=== PATIENT | male | born 1985 | race African-American/Black ===

== ENCOUNTER 2017-06-09 23:30 | Emergency (ER) | payer OTHER ==
[2017-06-09 23:40] VITALS: BP 134/94; PULSE 74; TEMP 98.9; BMI 22.3
--- NOTE | 2017-06-09 23:58 | PDOC ---
History of Present Illness - General Chief Complaint: Rectal Bleed Stated Complaint: BRIGHT RED BLOOD WITH BM Time Seen by Provider: 06/09/17 23:32 History Source: Patient Exam Limitations: No Limitations - History of Present Illness Initial Comments: 06/10/17 00:00 06/09/17 23:54 This is a 32 year old male who comes in complaining of intermittent episodes of bright red blood per rectum 2 weeks. Patient has not seen anybody for her symptoms were taken any medication for his symptoms. Patient denies any diarrhea with the symptoms, abdominal pain, nausea, fever, chills or symptoms of feeling lightheaded or weak or dizzy. Patient is otherwise healthy. And takes no medication. Patient denies any recent travel out of the country. PAST MEDICAL HISTORY: no significant history PAST SURGICAL HISTORY: no significant history FAMILY HISTORY: no pertinant history SOCIAL HISTORY: Pt lives with family and is employed. MEDICATIONS: reviewed ALLERGIES: As per nursing notes Review of Systems General: No fevers or chills, no weakness, no weight loss HEENT: No change in vision. No sore throat,. No ear pain CardioVascular: No chest pain or shortness of breath Respiratory:No cough, or wheezing. Gastrointestinal: no nausea, vomitting, diarrhea or constipation, blood in stool as per history of present illness Genitourinary: No dysuria, hematuria, or frequency Musculoskeletal: No joint or muscle pain or swelling Neurologic: No headache, vertigo, dizziness or loss of consciousness Psychiatric: nor depression Skin: No rashes or easy bruising Endocrine: no increased thirst or abnormal weight change Allergic: no skin or latex allergy All other systems reviewed and normal Exam: General: Well-nourished well-developed individual, no acute distress HEENT: Throat: Normal, tonsils normal, no erythema or exudate Neck: Supple, no meningeal signs, no lymphadenopathy Eyes::Pupils equal reactive and round, extraocular motion intact Chest: Nontender to palpation Cardiac: S1-S2 normal, regular rate and rhythm, no murmurs rubs or gallops Respiratory: Lungs clear to auscultation bilateral Abdomen: Soft, nondistended, normal bowel sounds, nontender to palpation diffusely Rectal: Nontender there is no hemorrhoids, there is brown stool well-formed in the rectal vault. Extremities: Warm, dry, no cyanosis, clubbing, or edema Skin: No rashes Neuro: Alert and oriented x3, nonfocal exam, grossly intact, normal gait Psych: Normal mood and affect Stool guaiac was negative Assessment and plan: This is a 32-year-old male with intermittent of blood in his stool. There was no skull other associated symptoms. Patient had a Hemoccult blood for his stool here that was negative. Past History - Past Medical History Allergies/Adverse Reactions: Allergies Allergy/AdvReac Type Severity Reaction Status Date / Time No Known Allergies Allergy Verified 06/09/17 23:33 Home Medications: Ambulatory Orders NK [No Known Home Medication] 01/31/15 Other medical history: DENIES - Psycho/Social/Smoking Cessation Hx Anxiety: No Suicidal Ideation: No Smoking History: Never smoked Have you smoked in the past 12 months: No Information on smoking cessation initiated: No Hx Alcohol Use: No Drug/Substance Use Hx: No Substance Use Type: None *Physical Exam - Vital Signs Last Vital Signs Temp Pulse Resp BP Pulse Ox 98.9 F 74 16 134/94 99 06/09/17 23:36 06/09/17 23:36 06/09/17 23:36 06/09/17 23:36 06/09/17 23:36 *DC/Admit/Observation/Transfer Diagnosis at time of Disposition: History of bloody stools - Discharge Dispostion Disposition: HOME Condition at time of disposition: Stable Admit: No - Patient Instructions Additional Instructions: Your test here in the emergency room for blood in your stool was negative for any blood at this time. His symptoms persist you should follow up with your doctor in have your stool tested for infectious causes for the blood Return to the emergency department immediately with ANY new, persistent or worsening symptoms. Continue any medications as previously prescribed by your physician. You should follow up with your primary doctor as soon as possible regarding today's emergency department visit. . Please make sure your doctor reviews the results of your emergency evaluation. Thank you for coming to the Emergency Department today for your care. It was a pleasure to see you today. Please note that your evaluation is INCOMPLETE until you follow-up with your doctor.
== END 2017-06-10 00:06 | disposition home or self-care (01) ==
LOC: FER 23:30
DX: K92.1 Melena (principal)
CPT/HCPCS: 82272; 99281-25